=== PATIENT | female | born 1945 | race Hispanic/Latino ===

== ENCOUNTER 2017-08-17 17:11 | Emergency (ER) | payer MEDICARE ==
[2017-08-17 17:14] VITALS: O2SAT 98
--- NOTE | 2017-08-17 18:02 | ED PDOC ---
HPI: Trauma/Fall - HPI Time Seen by Provider: 08/17/17 17:30 Chief Complaint (Nursing): Trauma Chief Complaint (Provider): left arm pain History Per: Patient Additional Complaint(s): 72 to female, PMH of OA, presents to ED for evaluation of left UE pain s/p a mechanical slip and fall in [facility] kitchen., Pt reports she placed her arm out to brace her fall, Pt did not hit her head, no other injuries reported. Past Medical History Reviewed: Nursing Documentation, Vital Signs Vital Signs: Last Vital Signs Temp 98 F 08/17/17 17:13 Pulse 76 08/17/17 17:13 Resp 18 08/17/17 17:13 BP 176/110 H 08/17/17 17:13 Pulse Ox 98 08/17/17 17:13 - Medical History PMH: Arthritis - Family History Family History: States: No Known Family Hx, Unknown Family Hx - Living Arrangements Living Arrangements: With Family - Social History Current smoker - smoking cessation education provided: No Alcohol: None Drugs: Denies - Allergies Allergies/Adverse Reactions: Allergies Allergy/AdvReac Type Severity Reaction Status Date / Time No Known Allergies Allergy Verified 08/17/17 17:12 Review of Systems ROS Statement: Except As Marked, All Systems Reviewed And Found Negative Musculoskeletal: Positive for: Arm Pain Physical Exam - Reviewed Nursing Documentation Reviewed: Yes Vital Signs Reviewed: Yes - Physical Exam Appears: Positive for: Well, Non-toxic, No Acute Distress Head Exam: Positive for: ATRAUMATIC, NORMAL INSPECTION, NORMOCEPHALIC Skin: Positive for: Normal Color, Warm, DRY Eye Exam: Positive for: EOMI, Normal appearance, PERRL ENT: Positive for: Normal ENT Inspection Neck: Positive for: Normal, Painless ROM Cardiovascular/Chest: Positive for: Regular Rate, Rhythm Respiratory: Positive for: CNT, Normal Breath Sounds Gastrointestinal/Abdominal: Positive for: Normal Exam, Bowel Sounds, Soft Back: Positive for: Normal Inspection Extremity: Positive for: Tenderness, Swelling, Other (radial pulses 2+) Neurologic/Psych: Positive for: Alert, Oriented - ECG O2 Sat by Pulse Oximetry: 98 Medical Decision Making Medical Decision Making: Pt requested Motrin PO XRs obtained of shoulder, humerus, forearm and wrist: (+) Radial head fxr, possible subluxation as well Case discussed with Ortho on-call, Dr. Harrison, who advised CT scan at this time. Pt given additional 200 mg Motrin PO at request. CT ordered Case endorsed to HECTOR Jack at [address] results and possible admission Disposition - Clinical Impression Clinical Impression: Humerus fracture, Fall - Patient ED Disposition Is Patient to be Admitted: Transfer of Care - Disposition Disposition: Transfer of Care Disposition Time: 20:21 Condition: STABLE Forms: [facility] (Bul[place]ian) - POA Present On Arrival: Falls Or Trauma
--- NOTE | 2017-08-17 22:17 | CT ---
EXAM: CT Left Upper Extremity Without Intravenous Contrast, Shoulder CLINICAL HISTORY: 72 years old, female; Injury or trauma; Fall; Initial encounter; Blunt trauma (contusions or hematomas; Shoulder; Left; Injury details: Slipped and fell at home; Additional info: Fxr TECHNIQUE: Axial computed tomography images of the left shoulder without intravenous contrast. All CT scans at this facility use one or more dose reduction techniques, viz.: automated exposure control; ma/kV adjustment per patient size (including targeted exams where dose is matched to indication; i.e. head); or iterative reconstruction technique. Coronal and sagittal reformatted images were created and reviewed. COMPARISON: CR - HUMERUS LEFT 2017-08-17 18:46 FINDINGS: Bones/joints: Fracture LEFT proximal humerus involving surgical neck and greater tuberosity. Impaction and anterior angulation at level of surgical neck. Mild displacement of greater tuberosity fracture fragment. Mild degenerative changes of acromioclavicular joint. No dislocation. Soft tissues: Mild soft tissue swelling/stranding about shoulder. IMPRESSION: 1. LEFT proximal humeral fracture. 2. Incidental/non-acute findings are described above.
--- NOTE | 2017-08-17 22:24 | ED PDOC ---
- ECG O2 Sat by Pulse Oximetry: 98 - Progress ED Course And Treament: FINDINGS: Bones/joints: Fracture LEFT proximal humerus involving surgical neck and greater tuberosity. Impaction and anterior angulation at level of surgical neck. Mild displacement of greater tuberosity fracture fragment. Mild degenerative changes of acromioclavicular joint. No dislocation. Soft tissues: Mild soft tissue swelling/stranding about shoulder. IMPRESSION: 1. LEFT proximal humeral fracture. 2. Incidental/non-acute findings are described above. Thank you for allowing us to participate in the care of your patient. Dictated and Authenticated by: Cristobal Fernandes MD 08/17/2017 10:17 PM Eastern Time ([place] & [place]) d/w Dr. Harrison. States patient can f/u outpatient for evaluation. Disposition - Clinical Impression Clinical Impression: Humerus fracture, Fall - POA Present On Arrival: None - Disposition Referrals: Kurt Harrison III, MD [Staff Provider] - Disposition: Routine/Home Disposition Time: 22:23 Condition: STABLE Prescriptions: Ondansetron ODT [Zofran ODT] 4 mg PO Q8 PRN #10 odt PRN Reason: Nausea/Vomiting oxyCODONE/Acetaminophen [Percocet 5/325 mg Tab] 1 ea PO Q6 PRN #10 tab PRN Reason: Pain, Severe (8-10) Instructions: Arm Fracture in Adults (ED) Forms: [facility] ([place])
[2017-08-17 22:52] VITALS: BP 130/74; PULSE 78; RESP 16; TEMP 98.3
--- NOTE | 2017-08-18 07:43 | RAD ---
PROCEDURE: Radiographs of the Left Forearm HISTORY: pain s/p fall COMPARISON: None available. TECHNIQUE: Frontal and lateral views obtained. FINDINGS: BONES: No fracture or destructive lesion. JOINT SPACES: Unremarkable. OTHER FINDINGS: Incidental note is made of advanced degenerative changes at the left wrist. IMPRESSION: Unremarkable radiographs of the left forearm. Prominent osteopenia suggests advanced osteoporosis. Clinically correlate.
--- NOTE | 2017-08-18 07:44 | RAD ---
PROCEDURE: Radiographs of the left humerus. HISTORY: pain s/p fall COMPARISON: None. FINDINGS: BONES: There is a comminuted impacted fracture of the proximal humerus with subluxation or dislocation in question. This is separate left shoulder radiograph report. SOFT TISSUES: Normal. OTHER FINDINGS: None. IMPRESSION: Impacted comminuted fracture proximal humerus with possible dislocation of the glenohumeral joint.
--- NOTE | 2017-08-18 07:47 | RAD ---
PROCEDURE: Radiographs of the Left Shoulder HISTORY: pain s/p fall COMPARISON: No prior. FINDINGS: BONES: A comminuted fracture of the left humeral head is appreciated with impaction. The humeral head appears subluxed inferiorly which may be a function of large joint effusion or cervical subdeltoid bursal effusion, however, an anterior inferior dislocation of the left humeral head is not excluded. Limitations of the study are single-view rather than added "Y" or tangential view. The acromioclavicular joint is severely degenerated. No separation of the joint is appreciated. SOFT TISSUES: Normal. OTHER FINDINGS: None. IMPRESSION: A prominent comminuted impacted fracture of the proximal left humerus is appreciated with possible dislocation versus subluxation. Follow-up CT is available if patient unable to position for additional left shoulder radiographs determine dislocation. Degenerative the acromioclavicular joint changes are identified.
--- NOTE | 2017-08-18 07:50 | RAD ---
PROCEDURE: Left Wrist Radiographs. HISTORY: pain s/p fall COMPARISON: None. FINDINGS: BONES: No acute fracture dislocation is appreciable. Diffuse osteopenia suggests osteoporosis. Marked joint space narrowing is appreciated at the right radial navicular joint as well as of the basal joint with a lesser similar changes identified throughout the remaining carpal carpal and carpal metacarpal articulations. The scapholunate interval is widened suspicious for scapholunate ligament tear of indeterminate age. No definite dislocation of the carpus is identified at this time. SOFT TISSUES: Normal. OTHER FINDINGS: None. IMPRESSION: No fracture or dislocation is appreciated at this time. Diffuse osteopenia suggests osteoporosis and there is advanced osteoarthritis as discussed above. Scapholunate interval is widened suspicious scapholunate ligament tear of indeterminate age. Clinically correlate.
== END 2017-08-17 22:55 | disposition home or self-care (01) ==
LOC: H.ER 17:11
DX: S42.402A Unspecified fracture of lower end of left humerus, initial encounter for closed fracture (principal); W01.0XXA Fall on same level from slipping, tripping and stumbling without subsequent striking against object, initial encounter; Y92.000 Kitchen of unspecified non-institutional (private) residence as the place of occurrence of the external cause; M19.90 Unspecified osteoarthritis, unspecified site; M85.80 Other specified disorders of bone density and structure, unspecified site